=== PATIENT | male | born 1985 | race Two or more races ===

== ENCOUNTER 2021-08-22 17:14 | Emergency (ER) | payer BC ==
[~2021-08-22] VITALS: Ht 177.8 cm; Wt 104.3 kg
[2021-08-22 17:42] VITALS: BP 143/104
[2021-08-22] MEDS ORDERED: amLODIPine BESYLATE 5 MG TAB PO ONE (20:15)
[2021-08-22] MEDS ORDERED: AMLO-496 PO (20:30)
== END 2021-08-22 20:42 | disposition home or self-care (01) ==
LOC: ER 17:14
DX: I10 Essential (primary) hypertension (principal)